=== PATIENT | female | born 1955 | race Caucasian/White ===

== ENCOUNTER → 2018-07-20 | Outpatient (REF) | LOC: ZLAB.WCH 09:07 | DX: Z01.89 Encounter for other specified special examinations (principal) ==

== ENCOUNTER → 2018-07-21 | Outpatient (REF) ==
[2018-07-21 16:43] LABS: THYROXINE (T4)-TOTAL 11.7 ug/dL (5.5-11.0)
== END ==
LOC: ZLAB.WCH 15:56
PROVIDERS: Family Medicine
DX: Z01.89 Encounter for other specified special examinations (principal)